=== PATIENT | male | born 1985 | race African-American/Black ===

== ENCOUNTER 2016-12-28 22:52 | Emergency (ER) | payer MEDICAID ==
[~2016-12-28] VITALS: Ht 180.3 cm; Wt 79.4 kg
--- NOTE | 2016-12-28 23:23 | NUR ---
DAKOTA Cox at bedside for further eval.
--- NOTE | 2016-12-28 23:36 | NUR ---
Patient discharged to home in stable condition. Written and verbal after care instructions given. Patient verbalizes understanding of instruction.
[2016-12-28 23:37] VITALS: BP 112/75
== END 2016-12-28 23:37 | disposition home or self-care (01) ==
LOC: ER 22:53
DX: S29.011A Strain of muscle and tendon of front wall of thorax, initial encounter (principal); X58.XXXA Exposure to other specified factors, initial encounter; Y93.89 Activity, other specified; Y92.89 Other specified places as the place of occurrence of the external cause; Y99.8 Other external cause status; R07.0 Pain in throat
CPT/HCPCS: A4606; Z7610

== ENCOUNTER 2017-07-13 00:34 | Emergency (ER) | payer MEDICAID ==
[~2017-07-13] VITALS: Ht 180.3 cm; Wt 79.4 kg
[2017-07-13 00:38] VITALS: BP 114/79
[2017-07-13] MEDS ORDERED: AZITHROMYCIN 250 MG TABLET PO ONE (01:00)
[2017-07-13] MEDS ORDERED: CEFTRIAXONE 500 MG VIAL IM ONE (01:00)
[2017-07-13] MEDS ORDERED: METRONIDAZOLE 500 MG TABLET PO ONE (01:00)
[2017-07-13] MEDS ORDERED: AZITHROMYCIN 250 MG TABLET ONE (01:20)
[2017-07-13] MEDS ORDERED: METRONIDAZOLE 500 MG TABLET ONE (01:20)
[2017-07-13] MEDS ORDERED: CEFTRIAXONE 1 G VIAL ONE (01:20)
[2017-07-13 01:21] LABS: APPEARANCE,URINE SL CLOUDY (CLEAR); BILIRUBIN,URINE NEGATIVE (NEGATIVE); BLOOD, URINE NEGATIVE Ery/uL (NEGATIVE); COLOR,URINE YELLOW (YELLOW); KETONES,URINE TRACE (NEGATIVE); LEUKOCYTE ESTERASE ,URINE NEGATIVE (NEGATIVE); NITRITE, URINE NEGATIVE (NEGATIVE); PROTEIN,URINE NEGATIVE (NEGATIVE); UGLUCOSE NEGATIVE (NEGATIVE); UROBILINOGEN,URINE 0.2 EU/dL (0.2)
[2017-07-13 02:56] LABS: BACTERIA,URINE 1+ /HPF (None Seen); SQUAMOUS EPITHELIAL CELL,UR Few /HPF (None Seen); WBC,URINE 21-50 /HPF (0-3)
[2017-07-13 02:57] LABS: MUCUS,URINE Moderate /LPF (None Seen); URINE AMORPHOUS PHOSPHATES Few /HPF (None Seen)
== END 2017-07-13 02:13 | disposition home or self-care (01) ==
LOC: ER 00:35
DX: A60.00 Herpesviral infection of urogenital system, unspecified (principal)
CPT/HCPCS: 81001; 87086; 87491; 87591; 96372; 99284; A4606; J0696; Z7610; 81000-TC

== ENCOUNTER 2017-10-20 03:13 | Emergency (ER) | payer MEDICAID ==
[~2017-10-20] VITALS: Ht 175.3 cm; Wt 68.5 kg
[2017-10-20 04:55] VITALS: BP 131/74
[2017-10-20] MEDS ORDERED: METRONIDAZOLE 500 MG TABLET PO ONE (05:00)
[2017-10-20] MEDS ORDERED: AZITHROMYCIN 250 MG TABLET PO ONE (05:00)
[2017-10-20] MEDS ORDERED: PENICILLIN G BENZATHINE 2.4 MMU/4 ML ML IM ONE ×2 (05:00→05:33)
[2017-10-20] MEDS ORDERED: CEFTRIAXONE 500 MG VIAL IM ONE (05:00)
[2017-10-20 05:15] LABS: APPEARANCE,URINE CLEAR (CLEAR); BILIRUBIN,URINE NEGATIVE (NEGATIVE); BLOOD, URINE NEGATIVE Ery/uL (NEGATIVE); COLOR,URINE YELLOW (YELLOW); KETONES,URINE TRACE (NEGATIVE); LEUKOCYTE ESTERASE ,URINE NEGATIVE (NEGATIVE); NITRITE, URINE NEGATIVE (NEGATIVE); PROTEIN,URINE NEGATIVE (NEGATIVE); UGLUCOSE NEGATIVE (NEGATIVE); UROBILINOGEN,URINE 0.2 EU/dL (0.2)
[2017-10-20 05:21] LABS: BACTERIA,URINE None seen /HPF (None Seen); MUCUS,URINE Many /LPF (None Seen); RBC,URINE 0-2 /HPF (0-2); SQUAMOUS EPITHELIAL CELL,UR Few /HPF (None Seen); WBC,URINE 0-2 /HPF (0-3)
[2017-10-20] MEDS ORDERED: CEFTRIAXONE 1 G VIAL ONE (05:32)
[2017-10-20] MEDS ORDERED: LIDOCAINE /MPF 1% VIAL 5 ML VIAL ONE (05:33)
[2017-10-20] MEDS ORDERED: METRONIDAZOLE 500 MG TABLET ONE (05:33)
[2017-10-20] MEDS ORDERED: AZITHROMYCIN 250 MG TABLET ONE (05:33)
== END 2017-10-20 05:46 | disposition home or self-care (01) ==
LOC: ER 03:16
DX: A64 Unspecified sexually transmitted disease (principal)
CPT/HCPCS: 36415; 81000-TC; 86592; 87491; 87591; A4606; J0558; J0696; J3490; Z7610

== ENCOUNTER 2018-08-27 20:55 | Emergency (ER) | payer MEDICAID ==
[~2018-08-27] VITALS: Ht 180.3 cm; Wt 78.0 kg
--- NOTE | 2018-08-27 23:54 | NUR ---
PT PRESENTED TO THE ER WITH A C/O BILATERAL KNEE PAIN. PT AMBULATED TO ER 18 WITH A SLOW, STEADY GAIT. SLIGHT LIMP NOTED.
--- NOTE | 2018-08-28 00:10 | NUR ---
PT APPEARS TO BE STRETCHING TO ALLEVIATE THE PAIN.
[2018-08-28] MEDS ORDERED: IBUPROFEN 600 MG TABLET PO ONE ×2 (00:15)
--- NOTE | 2018-08-28 00:15 | NUR ---
PT REC'D MEDICATION ORDERED.
--- NOTE | 2018-08-28 01:54 | NUR ---
Patient discharged to home in stable condition. Written and verbal after care instructions given. Patient verbalizes understanding of instruction AND RX. PT REC'D AN ICE PACK AND AMBULATED OUT WITH A SLOW STEADY GAIT. PT TO F/U WITH PMD FOR FURTHER EVAL. VSS.
[2018-08-28 02:01] VITALS: BP 119/73
== END 2018-08-28 02:01 | disposition home or self-care (01) ==
LOC: ER 20:55
DX: M25.561 Pain in right knee (principal); M25.562 Pain in left knee; Z60.2 Problems related to living alone
CPT/HCPCS: 73564 ×2; 99283; A4606

== ENCOUNTER 2018-09-08 20:19 | Emergency (ER) | payer MEDICAID ==
[~2018-09-08] VITALS: Ht 180.3 cm; Wt 78.0 kg
--- NOTE | 2018-09-08 20:35 | NUR ---
EKG REVIEWED BY DR NANCE. OK PER MD TO RETURN TO WAITING ROOM PENDING BED AVAILABILITY. EXPLAINED POC TO PT.
--- NOTE | 2018-09-08 21:00 | NUR ---
pt bibself from home mainly c/o Rt leg/knee pain for the past week with no relief even after taking ibuprofen. Per pt statement "knee feels swollen." Pt is a/ox4, verbal, able to make needs known. NO s/s of acute distress or severe sob noted. Pt is resting comfortably in bed. Pt already seen by MD at bedside. will continue to monitot pt.
[2018-09-08 21:21] LABS: BASOPHILS # (AUTO) 0.1 /CMM (0.0-0.2); BASOPHILS % (AUTO) 0.9 % (0.0-2.0); EOSINOPHILS % (AUTO) 1.4 % (0.0-6.0); HEMATOCRIT 41 % (39-51); HEMOGLOBIN 13.7 g/dL (13.5-17.5); LYMPHOCYTES # (AUTO) 2.4 /CMM (0.8-4.8); LYMPHOCYTES % (AUTO) 32.3 % (20.0-44.0); MEAN CORPUSCULAR HGB CONC 33 g/dl (31.0-36.0); MEAN CORPUSCULAR VOLUME 100 fL (80-96); MONOCYTES # (AUTO) 0.7 /CMM (0.1-1.30); MONOCYTES % (AUTO) 9.2 % (2.0-12.0); NEUTROPHILS # (AUTO) 4.2 /CMM (1.8-8.9); NEUTROPHILS % (AUTO) 56.2 % (43.0-81.0); PLATELET COUNT (AUTO) 277 /CMM (150-450); RED BLOOD CELL COUNT(AUTO) 4.12 MIL/uL (4.5-6.0); WHITE BLOOD COUNT (AUTO) 7.4 K/uL (4.3-11.0)
[2018-09-08 21:31] LABS: CALCIUM, SERUM 9.1 mg/dL (8.5-10.1); CARBON DIOXIDE 30 mmol/L (21-32); CHLORIDE 105 mmol/L (98-107); CREATININE 1.2 mg/dL (0.6-1.3); GLUCOSE 113 mg/dL (74-106); POTASSIUM 3.8 mmol/L (3.5-5.1); SODIUM SERUM 140 mmol/L (136-145); UREA NITROGEN, BLOOD 23 mg/dL (7-18)
[2018-09-08] MEDS ORDERED: KETOROLAC TROMETHAMINE INJ 30 MG/ML VIAL ONE (23:05)
--- NOTE | 2018-09-08 23:10 | NUR ---
Toradol 30mg administered IM on Lt Deltoid.
[2018-09-08 23:16] VITALS: BP 118/61
[2018-09-08] MEDS ORDERED: KETOROLAC TROMETHAMINE INJ 30 MG/ML VIAL IM ONE (23:30)
== END 2018-09-08 23:18 | disposition home or self-care (01) ==
LOC: ER 20:20
DX: M25.561 Pain in right knee (principal); M79.89 Other specified soft tissue disorders; Z60.2 Problems related to living alone
CPT/HCPCS: 36415; 71045; 80048; 84484; 85025; 85378; 85730; 93005; 93971; 96372; 99284; A4606; J1885

== ENCOUNTER 2019-04-05 23:05 | Emergency (ER) | payer MEDICAID ==
[~2019-04-05] VITALS: Ht 180.3 cm; Wt 82.6 kg
--- NOTE | 2019-04-06 00:14 | NUR ---
RECEIVED PT IN BED WITH FLU LIKE SYMPTOMS. PT A&O 4. VSS. PAIN 12/30.
[2019-04-06] MEDS ORDERED: CEFTRIAXONE 500 MG VIAL ONE (00:39)
[2019-04-06] MEDS ORDERED: AZITHROMYCIN 250 MG TABLET ONE (00:40)
[2019-04-06] MEDS ORDERED: LIDOCAINE /MPF 1% VIAL 5 ML VIAL ONE (00:40)
[2019-04-06] MEDS ORDERED: AZITHROMYCIN 250 MG TABLET PO ONE (01:00)
[2019-04-06] MEDS ORDERED: CEFTRIAXONE 500 MG VIAL IM ONE (01:00)
[2019-04-06 01:43] LABS: APPEARANCE,URINE Clear (CLEAR); BILIRUBIN,URINE Negative (NEGATIVE); BLOOD, URINE Negative Ery/uL (NEGATIVE); COLOR,URINE Yellow (YELLOW); KETONES,URINE Trace (NEGATIVE); LEUKOCYTE ESTERASE ,URINE Negative (NEGATIVE); NITRITE, URINE Negative (NEGATIVE); PROTEIN,URINE Negative (NEGATIVE); UGLUCOSE Negative (NEGATIVE)
[2019-04-06 01:56] LABS: BACTERIA,URINE Few /HPF (None Seen); RBC,URINE 0-2 /HPF (0-2); SQUAMOUS EPITHELIAL CELL,UR Rare /HPF (None Seen)
[2019-04-06 02:07] VITALS: BP 109/66
--- NOTE | 2019-04-06 02:08 | NUR ---
PT IN STABLE CONDITION. PT TO BE DISCHARGED TO HOME.
== END 2019-04-06 02:08 | disposition home or self-care (01) ==
LOC: ER 23:07
DX: R07.89 Other chest pain (principal); R68.83 Chills (without fever); Z60.2 Problems related to living alone
CPT/HCPCS: 71045; 81001; 87491; 87591; 93005; 96372; 99284; J0696; J3490; 81000-TC

== ENCOUNTER 2019-05-04 18:25 | Emergency (ER) | payer MEDICAID ==
[~2019-05-04] VITALS: Ht 180.3 cm; Wt 83.5 kg
[2019-05-04 18:36] VITALS: BP 128/67
[2019-05-04] MEDS ORDERED: CEFTRIAXONE 1 G VIAL IM ONE (19:00)
[2019-05-04] MEDS ORDERED: AZITHROMYCIN 250 MG TABLET PO ONE (19:00)
[2019-05-04 19:38] LABS: BASOPHILS # (AUTO) 0.1 /CMM (0.0-0.2); EOSINOPHILS % (AUTO) 3.1 % (0.0-6.0); HEMATOCRIT 45 % (39-51); HEMOGLOBIN 15.4 g/dL (13.5-17.5); LYMPHOCYTES # (AUTO) 2.7 /CMM (0.8-4.8); LYMPHOCYTES % (AUTO) 33.3 % (20.0-44.0); MEAN CORPUSCULAR HGB CONC 34 g/dl (31.0-36.0); MEAN CORPUSCULAR VOLUME 98 fL (80-96); MONOCYTES # (AUTO) 0.8 /CMM (0.1-1.30); MONOCYTES % (AUTO) 9.5 % (2.0-12.0); NEUTROPHILS # (AUTO) 4.3 /CMM (1.8-8.9); NEUTROPHILS % (AUTO) 53.1 % (43.0-81.0); PLATELET COUNT (AUTO) 153 /CMM (150-450); RED BLOOD CELL COUNT(AUTO) 4.61 MIL/uL (4.5-6.0); WHITE BLOOD COUNT (AUTO) 8.1 K/uL (4.3-11.0)
[2019-05-04] MEDS ORDERED: AZITHROMYCIN 250 MG TABLET ONE (19:45)
[2019-05-04] MEDS ORDERED: CEFTRIAXONE 500 MG VIAL ONE (19:45)
[2019-05-04 19:47] LABS: CALCIUM, SERUM 9.1 mg/dL (8.5-10.1); CARBON DIOXIDE 33 mmol/L (21-32); CHLORIDE 101 mmol/L (98-107); CREATININE 1.1 mg/dL (0.6-1.3); GLUCOSE 88 mg/dL (74-106); POTASSIUM 3.6 mmol/L (3.5-5.1); SODIUM SERUM 138 mmol/L (136-145); UREA NITROGEN, BLOOD 18 mg/dL (7-18)
[2019-05-04 20:12] LABS: APPEARANCE,URINE Clear (CLEAR); BILIRUBIN,URINE SMALL (NEGATIVE); BLOOD, URINE Negative Ery/uL (NEGATIVE); COLOR,URINE Yellow (YELLOW); KETONES,URINE Trace (NEGATIVE); LEUKOCYTE ESTERASE ,URINE Negative (NEGATIVE); NITRITE, URINE Negative (NEGATIVE); PROTEIN,URINE Trace mg/dl (NEGATIVE); UGLUCOSE Negative (NEGATIVE); UROBILINOGEN,URINE >=8.0 EU/dL (0.2)
[2019-05-04 20:23] LABS: BACTERIA,URINE Few /HPF (None Seen); RBC,URINE 0-2 /HPF (0-2); SQUAMOUS EPITHELIAL CELL,UR Few /HPF (None Seen); WBC,URINE 0-2 /HPF (0-3)
--- NOTE | 2019-05-04 20:46 | NUR ---
Patient discharged to home in stable condition. Written and verbal after care instructions given. Patient verbalizes understanding of instruction.
== END 2019-05-04 21:01 | disposition home or self-care (01) ==
LOC: ER 18:25
DX: R07.89 Other chest pain (principal); F41.9 Anxiety disorder, unspecified; Z20.2 Contact with and (suspected) exposure to infections with a predominantly sexual mode of transmission; Z60.2 Problems related to living alone
CPT/HCPCS: 36415; 80048; 81001; 84484; 85025; 87491; 87591; 93005; 96372; 99284; J0696; J7060; 81000-TC

== ENCOUNTER 2020-09-18 12:07 | Emergency (ER) | payer MEDICAID ==
[~2020-09-18] VITALS: Ht 180.3 cm; Wt 82.6 kg
--- NOTE | 2020-09-18 12:14 | NUR ---
BIB SELF C/O L SIDED CHEST PRESSURE/SHARP PAIN R/T L SHOULDER x 4 DAYS. MUCH WORSE TODAY. TO ERBED 10, HOOKED TO MONITOR, CHANGED TO HOSP GOWN, WARM BLANKET PROVIDED, PATIENT AAO x 4. NAD NOTED. AWAITING MD HUERTA
--- NOTE | 2020-09-18 12:34 | NUR ---
DR SARKAR AT BEDSIDE
[2020-09-18 12:54] LABS: BASOPHILS % (AUTO) 0.5 % (0.0-2.0); EOSINOPHILS % (AUTO) 1.1 % (0.0-6.0); HEMATOCRIT 43 % (39-51); HEMOGLOBIN 14.4 g/dL (13.5-17.5); LYMPHOCYTES # (AUTO) 1.8 /CMM (0.8-4.8); LYMPHOCYTES % (AUTO) 34.6 % (20.0-44.0); MEAN CORPUSCULAR HGB CONC 34 g/dl (31.0-36.0); MEAN CORPUSCULAR VOLUME 96 fL (80-96); MONOCYTES # (AUTO) 0.4 /CMM (0.1-1.30); MONOCYTES % (AUTO) 8.5 % (2.0-12.0); NEUTROPHILS # (AUTO) 2.9 /CMM (1.8-8.9); NEUTROPHILS % (AUTO) 55.3 % (43.0-81.0); PLATELET COUNT (AUTO) 246 /CMM (150-450); RED BLOOD CELL COUNT(AUTO) 4.45 MIL/uL (4.5-6.0); WHITE BLOOD COUNT (AUTO) 5.2 K/uL (4.3-11.0)
[2020-09-18] MEDS ORDERED: KETOROLAC TROMETHAMINE INJ 30 MG/ML VIAL ONE (12:58)
--- NOTE | 2020-09-18 12:59 | NUR ---
BUMPER MACHINE OPERATOR AT BEDSIDE
[2020-09-18] MEDS ORDERED: KETOROLAC TROMETHAMINE INJ 30 MG/ML VIAL IV ONE (13:00)
[2020-09-18 13:02] LABS: CALCIUM, SERUM 8.4 mg/dL (8.5-10.1); CARBON DIOXIDE 28 mmol/L (21-32); CHLORIDE 102 mmol/L (98-107); CREATININE 1.3 mg/dL (0.6-1.3); GLUCOSE 123 mg/dL (74-106); POTASSIUM 3.7 mmol/L (3.5-5.1); SODIUM SERUM 140 mmol/L (136-145); UREA NITROGEN, BLOOD 15 mg/dL (7-18)
[2020-09-18 13:13] LABS: ALANINE AMINOTRANSFERASE 29 U/L (12-78); ALBUMIN 3.6 g/dL (3.4-5.0); ALKALINE PHOSPHATASE 58 U/L (46-116); ASPARTATE AMINOTRANSFERASE 23 U/L (15-37); BILIRUBIN,DIRECT 0.1 mg/dL (0.0-0.2); BILIRUBIN,TOTAL 0.7 mg/dL (0.2-1.0); TOTAL PROTEIN, SERUM 7.1 g/dL (6.4-8.2)
--- NOTE | 2020-09-18 13:56 | NUR ---
IV removed. Catheter intact and site benign. Pressure and 4x4 applied to site. No bleeding noted.Patient discharged to home in stable condition. Written and verbal after care instructions given. Patient verbalizes understanding of instruction.
[2020-09-18 14:03] VITALS: BP 127/60
== END 2020-09-18 14:00 | disposition home or self-care (01) ==
LOC: ER 12:09
DX: R07.89 Other chest pain (principal); Z60.2 Problems related to living alone
CPT/HCPCS: 36415; 71045; 80048; 80076; 84484; 85025; 93005; 96374; 99285; J1885

== ENCOUNTER 2021-02-02 01:45 | Emergency (ER) | payer OTHER ==
[~2021-02-02] VITALS: Ht 180.3 cm; Wt 78.0 kg
[2021-02-02] MEDS ORDERED: KETOROLAC TROMETHAMINE INJ 60 MG/2 ML VIAL IM ONE (02:11)
[2021-02-02] MEDS ORDERED: CEFTRIAXONE 500 MG VIAL ONE ×2 (03:06→03:11)
[2021-02-02] MEDS ORDERED: DOXYCYCLINE HYCLATE (100 MG) 100 MG TABLET ONE (03:07)
[2021-02-02] MEDS ORDERED: LIDOCAINE /MPF 1% VIAL 5 ML VIAL ONE (03:11)
--- NOTE | 2021-02-02 03:20 | NUR ---
see downtime forms
[2021-02-02 04:02] VITALS: BP 134/78
[2021-02-02 04:10] LABS: BILIRUBIN,URINE SMALL (NEGATIVE); COLOR,URINE YELLOW (YELLOW); LEUKOCYTE ESTERASE ,URINE Negative (NEGATIVE); NITRITE, URINE Negative (NEGATIVE); PROTEIN,URINE Negative (NEGATIVE); UGLUCOSE Negative (NEGATIVE)
[2021-02-02 04:13] LABS: BACTERIA,URINE None seen /HPF (None Seen); RBC,URINE 0-2 /HPF (0-2); SQUAMOUS EPITHELIAL CELL,UR None Seen /HPF (None Seen)
== END 2021-02-02 03:20 | disposition home or self-care (01) ==
LOC: ER 01:45
DX: A64 Unspecified sexually transmitted disease (principal); R10.9 Unspecified abdominal pain
CPT/HCPCS: 81001; 96372 ×2; 99284; J0696 ×2; J1885; J3490

== ENCOUNTER 2021-12-25 11:55 | Emergency (ER) | payer OTHER ==
[~2021-12-25] VITALS: Ht 180.3 cm; Wt 81.6 kg
--- NOTE | 2021-12-25 12:00 | NUR ---
PT BIBS C/O LLQ ABDOMINAL PAIN X2DAYS, +NAUSEA, -VOMITING-DIARRHEA. PT IS AAOX4, NOT IN RESPIRATORY DISTRESS, V/S STABLE, KEPT RESTED AND COMFORTABLE. WILL CONTINUE TO MONITOR.
--- NOTE | 2021-12-25 12:21 | NUR ---
URINE COLLECTED AND SENT TO LAB
--- NOTE | 2021-12-25 13:00 | NUR ---
initial contact , pt c/o pain in spleen, discomfort - aching hurts, blood tests collected sent to lab, left hand gauge 20 IV intact patent flushing, pt cooperative,
[2021-12-25 13:14] LABS: BILIRUBIN,URINE NEGATIVE (NEGATIVE); COLOR,URINE YELLOW (YELLOW); LEUKOCYTE ESTERASE ,URINE NEGATIVE (NEGATIVE); NITRITE, URINE NEGATIVE (NEGATIVE); PROTEIN,URINE NEGATIVE (NEGATIVE); UGLUCOSE NEGATIVE (NEGATIVE)
[2021-12-25 13:21] LABS: BASOPHILS % (AUTO) 0.3 % (0.0-2.0); EOSINOPHILS % (AUTO) 1.1 % (0.0-6.0); HEMATOCRIT 44 % (39-51); HEMOGLOBIN 14.5 g/dL (13.5-17.5); LYMPHOCYTES # (AUTO) 1.6 K/uL (0.8-4.8); LYMPHOCYTES % (AUTO) 32.9 % (20.0-44.0); MEAN CORPUSCULAR HGB CONC 33 g/dl (31.0-36.0); MEAN CORPUSCULAR VOLUME 94 fL (80-96); MONOCYTES # (AUTO) 0.5 K/uL (0.1-1.30); MONOCYTES % (AUTO) 10.2 % (2.0-12.0); NEUTROPHILS # (AUTO) 2.7 K/uL (1.8-8.9); NEUTROPHILS % (AUTO) 55.5 % (43.0-81.0); PLATELET COUNT (AUTO) 238 K/uL (150-450); RED BLOOD CELL COUNT(AUTO) 4.62 MIL/uL (4.5-6.0); WHITE BLOOD COUNT (AUTO) 4.8 K/uL (4.3-11.0)
[2021-12-25 13:30] LABS: BACTERIA,URINE Few /HPF (None Seen); WBC,URINE 0-2 /HPF (0-3)
[2021-12-25] MEDS ORDERED: IV NS 0.9% 500 ML BAG IV ONE (13:30)
[2021-12-25 14:22] LABS: CALCIUM, SERUM 8.5 mg/dL (8.5-10.1); CREATININE 1.1 mg/dL (0.6-1.3); POTASSIUM 4.8 mmol/L (3.5-5.1)
[2021-12-25 14:28] LABS: BILIRUBIN,DIRECT 0.1 mg/dL (0.0-0.2); BILIRUBIN,TOTAL 0.6 mg/dL (0.2-1.0); TOTAL PROTEIN, SERUM 7.9 g/dL (6.4-8.2)
[2021-12-25] MEDS ORDERED: OXYC5TAB3 PO (14:48)
[2021-12-25 14:56] VITALS: BP 118/71
--- NOTE | 2021-12-25 14:56 | NUR ---
IV removed. Catheter intact and site benign. Pressure and 4x4 applied to site. No bleeding noted. Patient discharged to home in stable condition. Written and verbal after care instructions given. Patient verbalizes understanding of instruction.
== END 2021-12-25 14:57 | disposition home or self-care (01) ==
LOC: ER 12:10
DX: R10.9 Unspecified abdominal pain (principal); R11.0 Nausea; Z60.2 Problems related to living alone; Z79.899 Other long term (current) drug therapy
CPT/HCPCS: 36415; 74176; 80048; 80076; 81001; 83690; 85025; 85730; 96360; 99284; J7030

== ENCOUNTER 2022-08-07 16:30 | Emergency (ER) | payer OTHER ==
[~2022-08-07] VITALS: Ht 180.3 cm; Wt 85.7 kg
[~2022-08-07 16:30] MED LIST: OXYC5TAB3 PO
[2022-08-07 17:41] LABS: BASOPHILS % (AUTO) 0.2 % (0.0-2.0); EOSINOPHILS % (AUTO) 0.8 % (0.0-6.0); HEMATOCRIT 49 % (39-51); HEMOGLOBIN 16.3 g/dL (13.5-17.5); LYMPHOCYTES # (AUTO) 1.4 K/uL (0.8-4.8); LYMPHOCYTES % (AUTO) 21.6 % (20.0-44.0); MEAN CORPUSCULAR HGB CONC 33 g/dl (31.0-36.0); MEAN CORPUSCULAR VOLUME 94 fL (80-96); MONOCYTES # (AUTO) 0.4 K/uL (0.1-1.30); MONOCYTES % (AUTO) 6.9 % (2.0-12.0); NEUTROPHILS # (AUTO) 4.5 K/uL (1.8-8.9); NEUTROPHILS % (AUTO) 70.5 % (43.0-81.0); PLATELET COUNT (AUTO) 261 K/uL (150-450); RED BLOOD CELL COUNT(AUTO) 5.21 MIL/uL (4.5-6.0); WHITE BLOOD COUNT (AUTO) 6.3 K/uL (4.3-11.0)
[2022-08-07 18:05] VITALS: BP 116/78
[2022-08-07 18:11] LABS: CALCIUM, SERUM 9.1 mg/dL (8.5-10.1); CREATININE 1.1 mg/dL (0.6-1.3); POTASSIUM 3.5 mmol/L (3.5-5.1)
--- NOTE | 2022-08-07 19:36 | NUR ---
Patient discharged to home in stable condition. Written and verbal after care instructions given. Patient verbalizes understanding of instruction.
[2022-08-07 22:17] LABS: ABG BASE EXCESS 0.5 mmol/L; ABG OXYGEN SATURATION 98.4 % (92.0-98.5); ABG PCO2 33.1 mmHg (35.0-45.0); ABG PH 7.468 (7.350-7.450); ABG PO2 112.1 mmHg (75.0-100.0); MetHb 0.3 % (0.0-1.5); O2Hb 97.1 % (94.0-97.0); SITE, ABG Right Radial; VENT MODE, BG ROOM AIR
== END 2022-08-07 20:27 | disposition home or self-care (01) ==
LOC: ER 16:35
DX: R42 Dizziness and giddiness (principal); R51.9 Headache, unspecified; Z60.2 Problems related to living alone; Z79.899 Other long term (current) drug therapy; Z77.110 Contact with and (suspected) exposure to air pollution
CPT/HCPCS: 36415; 36600; 80048-TC; 82803-TC; 84484-TC; 85025-TC

== ENCOUNTER 2022-11-15 17:15 | Emergency (ER) | payer OTHER ==
[~2022-11-15] VITALS: Ht 180.3 cm; Wt 94.8 kg
--- NOTE | 2022-11-15 17:48 | NUR ---
Patient AOx4 able to express his concerns. Patient with no signs of distress, states he is worried about symptoms, he is on his cell phone with mother. Discussed plan of care, patient verbalized agreement. All safety precautions followed.
--- NOTE | 2022-11-15 17:50 | NUR ---
blood collected, sent to lab
[2022-11-15 17:59] LABS: BASOPHILS % (AUTO) 0.6 % (0.0-2.0); HEMATOCRIT 45 % (39-51); LYMPHOCYTES # (AUTO) 2.2 K/uL (0.8-4.8); LYMPHOCYTES % (AUTO) 38.1 % (20.0-44.0); MEAN CORPUSCULAR HGB CONC 33 g/dl (31.0-36.0); MEAN CORPUSCULAR VOLUME 94 fL (80-96); MONOCYTES # (AUTO) 0.4 K/uL (0.1-1.30); MONOCYTES % (AUTO) 7.6 % (2.0-12.0); NEUTROPHILS % (AUTO) 52.7 % (43.0-81.0); PLATELET COUNT (AUTO) 266 K/uL (150-450); RED BLOOD CELL COUNT(AUTO) 4.81 MIL/uL (4.5-6.0); WHITE BLOOD COUNT (AUTO) 5.8 K/uL (4.3-11.0)
[2022-11-15 18:08] LABS: CALCIUM, SERUM 8.9 mg/dL (8.5-10.1); CARBON DIOXIDE 30 mmol/L (21-32); CHLORIDE 107 mmol/L (98-107); CREATININE 1.3 mg/dL (0.6-1.3); GLUCOSE 104 mg/dL (74-106); POTASSIUM 3.6 mmol/L (3.5-5.1); SODIUM SERUM 140 mmol/L (136-145); UREA NITROGEN, BLOOD 11 mg/dL (7-18)
[2022-11-15 18:15] LABS: ALANINE AMINOTRANSFERASE 36 U/L (12-78); ALBUMIN 3.8 g/dL (3.4-5.0); ALKALINE PHOSPHATASE 77 U/L (46-116); ASPARTATE AMINOTRANSFERASE 19 U/L (15-37); BILIRUBIN,DIRECT 0.2 mg/dL (0.0-0.2); BILIRUBIN,TOTAL 0.4 mg/dL (0.2-1.0); TOTAL PROTEIN, SERUM 7.6 g/dL (6.4-8.2)
--- NOTE | 2022-11-15 18:29 | NUR ---
MOVE SHEET SUBMITTED.
[2022-11-15] MEDS ORDERED: METOCLOPRAMIDE HCL 10 MG/2 ML VIAL IV ONE (18:30)
--- NOTE | 2022-11-15 18:33 | NUR ---
COVID swab collected and sent to lab
[2022-11-15] MEDS ORDERED: METOCLOPRAMIDE HCL 10 MG/2 ML VIAL ONE (19:21)
--- NOTE | 2022-11-15 19:34 | NUR ---
Patient AOx4, stable. Handoff report given to Kamille ANAYA for continuity of care
--- NOTE | 2022-11-15 19:55 | NUR ---
RECEIVED REPORT FROM HÉCTOR BARCENAS. PATIENT IS AAOX4. ABLE TO MAKE NEEDS KNOWN. AMBULATORY. -CP, NUMBNESS STARTS TO RESOLVE. VITALS CHECKED.
--- NOTE | 2022-11-15 19:55 | NUR ---
URINE SPECIMEN SENT TO LAB
--- NOTE | 2022-11-15 21:36 | NUR ---
FAXED COVID NEGATIVE RESULTS TO [facility] FAX [phone]
--- NOTE | 2022-11-15 22:22 | NUR ---
MISSAEL BEAULIEU AT [facility] PT GOT ACCEPTED AT [facility] , GOING TO [address]ED [address], DR CRANE, # FOR REPORT: [phone]
--- NOTE | 2022-11-15 22:34 | NUR ---
[facility] FOR TRANSFER [id number]
--- NOTE | 2022-11-15 22:59 | NUR ---
REPORT GIVEN TO HÉCTOR MAGALLANES OF [facility].
--- NOTE | 2022-11-15 23:54 | NUR ---
PATIENT WANTS TO DO AMA. EXPLAINED RISK AND BENEFITS OF RECEIVING CONTINUING CARE AT [facility] BUT PATIENT FEELS THAT HE IS BETTER NOW AND WANTS TO GO SEE HIS PCP FOR FOLLOW UP. MADE AWARE.
--- NOTE | 2022-11-15 23:55 | NUR ---
Patient does not wish to proceed with medical care recommended by Dr. Christy. Patient given information related to possible complications, up to and including , which could occur as a result of leaving the hospital at this time. Patient verbalizes understanding of risks involved due to leaving against medical advice. Patient has signed AMA form.
--- NOTE | 2022-11-15 23:55 | NUR ---
IV ELIZABETH REMOVED
--- NOTE | 2022-11-15 23:56 | NUR ---
CALLED [facility] AND HÉCTOR PACE OF [facility] THAT PT DECIDED TO GO AMA.
[2022-11-15 23:57] VITALS: BP 109/78
== END 2022-11-16 00:29 | disposition left against medical advice (07) ==
LOC: ER 17:23
DX: R53.1 Weakness (principal); R51.9 Headache, unspecified; Z20.822 Contact with and (suspected) exposure to COVID-19; Z60.2 Problems related to living alone
CPT/HCPCS: 99285; 96374; 70450; 71045; 87426; 93005; 85025; 80048; 80076; 36415; 84484; 85730; 87081; 82962; 80307; J2765; C9803